=== PATIENT | male | born 2000 | race Caucasian/White ===

== ENCOUNTER 2023-05-10 15:37 | Inpatient (IN) | payer SELFPAY ==
[~2023-05-10] VITALS: Ht 180.3 cm; Wt 76.0 kg
[2023-05-10] MEDS ORDERED: SODIUM CHLORIDE 0.9% 1000ML BAG (SEPSIS BOLUS) IV ONE (16:00)
[2023-05-10] MEDS ORDERED: LORAZEPAM 2MG/ML CPJ IV ONE ×2 (18:15→19:00)
[2023-05-10 18:29] LABS: BASOPHILS % 0.2 % (0.0-2.0); HEMATOCRIT. 38.8 % (42.0-52.0); HEMOGLOBIN. 13.4 g/dL (14.0-18.0); MEAN CORPUSCULAR HEMOGLOBIN 28.9 pg (28.0-32.0); MEAN CORPUSCULAR VOLUME 83.7 fL (80.0-94.0); MEAN PLATELET VOLUME 8.3 fl (7.4-10.4); MONOCYTES % 10.8 % (2.0-8.0); PLATELET 419 x1000/uL (130-400); RED BLOOD CELL COUNT 4.63 mill/uL (4.7-6.1); RED CELL DISTRIBUTION WIDTH 13.2 % (11.6-14.6)
[2023-05-10 18:33] LABS: CHLORIDE 107 mEq/L (98-107)
[2023-05-10 18:39] LABS: CLARITY URINE CLOUDY (CLEAR); COLOR URINE DARK YELLOW (YELLOW); KETONES URINE 1+ (NEGATIVE); LEUKOCYTE ESTERASE URINE NEGATIVE (NEGATIVE); NITRITE URINE NEGATIVE (NEGATIVE); OCCULT BLOOD URINE 3+ (NEGATIVE); PROTEIN URINE 2+ (NEGATIVE); SPECIFIC GRAVITY URINE 1.024 (1.005-1.030); UROBILINOGEN URINE 0.2 E.U./dL (0.2-1.0)
[2023-05-10 18:43] LABS: INR 1.1; PROTHROMBIN TIME 11.5 sec (9.6-11.0)
[2023-05-10 18:52] LABS: ETHANOL BLOOD < 10 mg/dL (-10)
[2023-05-10 18:53] LABS: CREATINE KINASE 1135 IU/L (39-308)
[2023-05-10 19:01] LABS: *AMPHETAMINES SCREEN URINE PRESUMTIVE POSITIVE (NEGATIVE); *BARBITURATES SCREEN URINE NEGATIVE (NEGATIVE); *BENZODIAZEPINES SCREEN URINE PRESUMTIVE POSITIVE (NEGATIVE); *COCAINE SCREEN URINE NEGATIVE (NEGATIVE); CANNABINOID URINE SCREEN PRESUMTIVE POSITIVE (NEGATIVE); METHADONE URINE SCREEN NEGATIVE (NEGATIVE); OPIATES URINE SCREEN PRESUMTIVE POSITIVE (NEGATIVE); PHENCYCLIDINE URINE SCREEN NEGATIVE (NEGATIVE)
[2023-05-10] MEDS ORDERED: DEXAMETHASONE 10 MG/ML VIAL IV ONE (20:15)
[2023-05-10] MEDS ORDERED: CEFTRIAXONE 2GM/50ML (ADDEASE) 50 ML IV ONE (20:15)
[2023-05-10] MEDS: VANCOMYCIN 1G PREMIX 200 ML IV SCH ×2 (20:15→23:58)
[2023-05-10] MEDS ORDERED: ACYCLOVIR INJ 750 MG in DEXT 5% WATER 100 ML IV SCH (20:15)
[2023-05-10] MEDS ORDERED: ACYCLOVIR INJ 750 MG in DEXT 5% WATER 125 ML IV SCH (20:38)
[2023-05-10] MEDS ORDERED: LACTULOSE 20G/30ML UDC PO ONE (21:45)
[2023-05-10] MEDS ORDERED: DOCUSATE SODIUM 100MG CAPSULE PO PRN (23:45)
[2023-05-10] MEDS ORDERED: DIPHENHYDRAMINE 50MG/ML VIAL IV PRN (23:45)
[2023-05-10] MEDS ORDERED: LORAZEPAM 2MG/ML CPJ IV PRN (23:45)
[2023-05-10] MEDS ORDERED: DEXT 5%/0.45% NACL 1000ML 1,000 ML IV ONE (23:45)
[2023-05-10] MEDS ORDERED: ACETAMINOPHEN 325MG TABLET PO PRN (23:45)
[2023-05-10] MEDS ORDERED: GUAIFENESIN 200MG/10ML SUGAR FREE UDC PO PRN (23:45)
[2023-05-10] MEDS ORDERED: IPRATROPIUM/ALBUTEROL 0.5-3(2.5)MG/3ML NEB HHN PRN (23:45)
[2023-05-10] MEDS ORDERED: ONDANSETRON HCL 4MG/2ML INJ IV PRN (23:45)
[2023-05-10] MEDS ORDERED: CLONIDINE 0.1MG TABLET PO PRN (23:45)
[2023-05-11 04:00] VITALS: BP 143/115
[2023-05-11] MEDS ORDERED: LORAZEPAM 2MG/ML CPJ IM STA (06:59)
[2023-05-11] MEDS ORDERED: OLANZAPINE 10 MG/VIAL IM ONE (07:00)
[2023-05-11] MEDS ORDERED: LORAZEPAM 2MG/ML CPJ IV PRN (07:45)
[2023-05-11] MEDS ORDERED: FAMOTIDINE 20MG/2ML VIAL IV SCH (09:00)
== END 2023-05-11 07:54 | disposition left against medical advice (07) | DRG 812 ==
LOC: ER 15:37 → MICUSO 21:37 → EDBD 21:37 → EDBEDREQ 22:01 → EDBEDREQTM 22:01 → MICUSO 05-11 07:55
PROVIDERS: ADMIT Internal Medicine; ATTEND Internal Medicine
DX: T43.621A Poisoning by amphetamines, accidental (unintentional), initial encounter (principal); G92.8 Other toxic encephalopathy; N17.9 Acute kidney failure, unspecified; R65.10 Systemic inflammatory response syndrome (SIRS) of non-infectious origin without acute organ dysfunction; K76.82 Hepatic encephalopathy; E72.20 Disorder of urea cycle metabolism, unspecified; E87.1 Hypo-osmolality and hyponatremia; D64.9 Anemia, unspecified; D72.829 Elevated white blood cell count, unspecified; T40.411A Poisoning by fentanyl or fentanyl analogs, accidental (unintentional), initial encounter; T40.601A Poisoning by unspecified narcotics, accidental (unintentional), initial encounter; D75.839 Thrombocytosis, unspecified; F10.10 Alcohol abuse, uncomplicated; F15.90 Other stimulant use, unspecified, uncomplicated; F19.10 Other psychoactive substance abuse, uncomplicated; Z78.1 Physical restraint status; Z79.899 Other long term (current) drug therapy; Y92.89 Other specified places as the place of occurrence of the external cause
CPT/HCPCS: 36415; 71045; 80053; 80305; 80307; 80320; 80329; 81003; 82140; 82550; 83605; 83880; 84145; 84443; 84484; 85025; 93005; 99291; J0133; J0696; J1100; J2060; J3370; J3490; J7030; J7060; G0480